=== PATIENT | female | born 1995 | race African-American/Black ===

== ENCOUNTER → 2016-08-14 13:53 | Emergency (ER) | payer OTHER ==
[~2016-08-14 13:53] MED LIST: NS 0.9% 1000 ML* 1,000 ML IV ONE
[2016-08-14 15:45] VITALS: BP 112/55
--- NOTE | 2016-08-14 17:02 | ED ---
Substance Abuse/Use - HPI Summary HPI Summary: [employer] student partying today - brought in by ambulance for alcohol intoxication and vomiting. Reports she was drinking wine and denies additional drug use. Denies pain or injury. - History Of Current Complaint Chief Complaint: EDSubstanceAbuse Stated Complaint: ETOH Time Seen by Provider: 08/14/16 14:20 Hx Obtained From: Patient - Allergies/Home Medications Allergies/Adverse Reactions: Allergies Allergy/AdvReac Type Severity Reaction Status Date / Time No Known Allergies Allergy Verified 08/14/16 16:38 PMH/Surg Hx/FS Hx/Imm Hx Previously Healthy: Yes Infectious Disease History: Unable to Obtain/Confirm Infectious Disease History: Denies: Traveled Outside the [place] in Last 30 Days - [place] - Family History Known Family History: Positive: Unknown - intoxicated - Social History Occupation: Student Alcohol Use: Occasionally Substance Use Type: Reports: None Smoking Status (MU): Unknown if Ever Smoked Review of Systems Negative: Chest Pain Negative: Shortness Of Breath Positive: Vomiting. Negative: Abdominal Pain, Diarrhea, Nausea Positive: no symptoms reported Musculoskeletal: Negative Negative: Headache All Other Systems Reviewed And Are Negative: Yes Physical Exam Triage Information Reviewed: Yes Vital Signs On Initial Exam: Initial Vitals Temp Pulse Resp BP Pulse Ox 96.9 F 93 16 111/57 100 08/14/16 15:16 08/14/16 15:16 08/14/16 15:16 08/14/16 15:16 08/14/16 15:16 Vital Signs Reviewed: Yes Appearance: Positive: No Pain Distress - appears intoxicated - sleeping upon entrance to room and roused w/ physical stimulation along with vocal - follows commands some of the time, Well-Nourished Skin: Positive: Warm, Dry - no man injurie observed Head/Face: Positive: Normal Head/Face Inspection Eyes: Positive: Normal, EOMI, LINDSEY, Conjunctiva Clear ENT: Positive: Hearing grossly normal, TMs normal - no hemotympanum Dental: Negative: Dental Fracture @ Neck: Positive: Supple, Nontender Respiratory/Lung Sounds: Positive: Clear to Auscultation, Breath Sounds Present. Negative: Rales, Rhonchi, Stridor, Wheezes Cardiovascular: Positive: Pulses are Symmetrical in both Upper and Lower Extremities, S1, S2. Negative: Murmur, Rub Abdomen Description: Positive: Nontender, Soft Bowel Sounds: Positive: Present Musculoskeletal: Positive: Normal, Strength/ROM Intact Neurological: Positive: Normal, Sensory/Motor Intact, CN Intact II-III Psychiatric: Positive: Other - intoxicated Diagnostics - Vital Signs Vital Signs Temp Pulse Resp BP Pulse Ox 08/14/16 15:42 63 20 112/55 96 08/14/16 15:16 96.9 F 93 16 111/57 100 - Laboratory Lab Statement: Any lab studies that have been ordered have been reviewed, and results considered in the medical decision making process. Course/Dx - Course Course Of Treatment: Over course of stay, pt's mental clarity and alertness improved. Upon re-examination, she again denies pain or injury. Trying to get a sober friend to drive her home and monitor her sx over next 24 hours. Reviewed danger s/sx of when to return to ED. - Diagnoses Provider Diagnoses: Alcohol intoxication Discharge - Discharge Plan Condition: Stable Disposition: HOME Patient Education Materials: Alcohol Intoxication (ED) Referrals: [facility] @ [Outside] Additional Instructions: Drink clear fluids and avoid ETOH as well as other drugs, stimulants, etc. Follow-up with [facility] Tuesday if symptoms persist. *If worse, return to ED
== END | disposition home or self-care (01) ==
LOC: ED 13:53
DX: F10.129 Alcohol abuse with intoxication, unspecified (principal); R11.2 Nausea with vomiting, unspecified
CPT/HCPCS: 99283